=== PATIENT | male | born 2000 | race Caucasian/White ===

== ENCOUNTER 2023-09-23 12:07 | Emergency (ER) | payer OTHER ==
[~2023-09-23] VITALS: Ht 190.5 cm; Wt 97.7 kg
[2023-09-23 12:11] VITALS: TEMP 98.2
[2023-09-23] MEDS ORDERED: Home HYDROcodone/Acetaminophen 5/325 MG #4 TABS/PACK PO ONE (13:00)
[2023-09-23 13:01] VITALS: BP 114/60; PULSE 67
== END 2023-09-23 13:00 | disposition home or self-care (01) ==
LOC: COL.ER 12:07
DX: S52.602A Unspecified fracture of lower end of left ulna, initial encounter for closed fracture (principal); W21.03XA Struck by baseball, initial encounter